=== PATIENT | female | born 1960 | race Caucasian/White ===

== ENCOUNTER → 2017-02-28 | Outpatient (CLI) | payer OTHER ==
[~2017-02-28] MED LIST: ALEVE220 MG PO; FLEXERIL5 MG PO; PERCOCET 325 MG1 TAB PO; TORADOL10 MG PO
== END | disposition home or self-care (01) ==
LOC: MRI 09:30
DX: M16.12 Unilateral primary osteoarthritis, left hip (principal); M16.11 Unilateral primary osteoarthritis, right hip; M25.562 Pain in left knee; M25.462 Effusion, left knee; M71.22 Synovial cyst of popliteal space [Baker], left knee; M25.561 Pain in right knee; M22.8X2 Other disorders of patella, left knee; M22.8X1 Other disorders of patella, right knee

== ENCOUNTER → 2017-03-05 | Outpatient (CLI) | payer OTHER | END | disposition home or self-care (01) | LOC: MRI 09:57 | DX: M17.0 Bilateral primary osteoarthritis of knee (principal); R23.3 Spontaneous ecchymoses; M25.551 Pain in right hip; M25.552 Pain in left hip ==

== ENCOUNTER → 2017-05-21 | Outpatient (CLI) | payer OTHER ==
[2017-05-21 09:18] LABS: FREE T4 1.02 ng/dl (0.76-1.46)
[2017-05-21 09:23] LABS: THYROID STIM HORMONE (HS) 0.735 uIU/ml (0.358-4.75)
== END | disposition home or self-care (01) ==
LOC: LAB 08:31
PROVIDERS: Internal Medicine
DX: E04.2 Nontoxic multinodular goiter (principal)

== ENCOUNTER → 2017-06-05 | Outpatient (CLI) | payer OTHER | END | disposition home or self-care (01) | LOC: RAD 12:54 | DX: M47.817 Spondylosis without myelopathy or radiculopathy, lumbosacral region (principal); M41.86 Other forms of scoliosis, lumbar region ==

== ENCOUNTER 2017-10-08 15:18 | Inpatient (IN) | payer OTHER ==
[~2017-10-08] VITALS: Ht 167.6 cm; Wt 81.7 kg
--- NOTE | ~2017-10-08 | CON ---
[place], [place] REPORT OF CONSULTATION NAME: JAVIER RAY UNIT #: [id number] ROOM: 504 DOCTOR: ANTHONY JOHNSON MD BIRTHDATE: [birth year] DOS: 10/09/2017 ATTESTATION The patient was seen and examined by myself. Labs and EKG notes were reviewed. The patient coming in with relatively atypical complaint of chest pain that has been going for the past year. There is a possibility of new onset hypertension that is responding to current medical regimen. A stress test with following Lexiscan was negative for ischemia. We are awaiting the nuclear images. The patient's lipid profile is quite favorable. Smoking cessation was reemphasized. The patient was asked not to shovel snow this year. Pending the results of the stress test, we will attempt medical management. Cardiac catheterization will be considered for any recurrence of chest pain while on Lopressor and Imdur. Early followup within 4 to 6 weeks as an outpatient. ANTHONY JOHNSON MD CM:CONSTR:REPORT OF CONSULTATION 1145 10/09/17 1703 interface
--- NOTE | ~2017-10-08 | ST ---
[place], [place] EXERCISE STRESS TEST REPORT NAME: JAVIER RAY [facility] #: [id number] UNIT #: [id number] ROOM: [facility] DOCTOR: ANTHONY JOHNSON MD BIRTHDATE: [birth year] DOS: REQUESTING PHYSICIAN: Dr. Garcia. INDICATION: Chest pain. PROCEDURE: The patient was brought into the stress lab. Procedure was explained with risks, benefits and alternatives. Lexiscan was injected. The patient tolerated the procedure relatively well. BLOOD PRESSURE RESPONSE: Resting blood pressure 128/88 with ending blood pressure 144/88. ELECTROCARDIOGRAM INTERPRETATION: Electrocardiogram showing normal sinus rhythm with left bundle-branch block with evidence of primary nonspecific ST-T changes. Following the infusion, there were no new changes. FINAL IMPRESSION: 1. Adequate Lexiscan stress test. 2. Inconclusive Lexiscan stress test for stress induced myocardial ischemia due to baseline EKG changes. 3. No arrhythmias were noted. 4. Myoview results will be reported separately. ANTHONY JOHNSON MD CM:STRESS:EXERCISE STRESS TEST REPORT 1142 [id number] ANTHONY JOHNSON MD
--- NOTE | ~2017-10-08 | CON ---
[place], [place] REPORT OF CONSULTATION NAME: JAVIER RAY UNIT #: [id number] ROOM: 504 DOCTOR: ANTHONY JOHNSON MD BIRTHDATE: [birth year] DOS: ATTESTATION REQUESTING PHYSICIAN: Dr. Hurtado. The patient was seen and examined by myself. Notes and labs were reviewed. The above management plan was carried out in my presence and with my direct participation. ANTHONY JOHNSON MD CM:CONSTR:REPORT OF CONSULTATION 0959 10/17/17 1038 interface
[2017-10-08 15:22] VITALS: BP 155/92
[2017-10-08 15:52] LABS: BASO % 0.5 % (0.0-1.0); EOS # 0.1 10*3/uL (0.0-0.4); EOS % 1.6 % (1.0-4.0); HEMATOCRIT 38.5 % (37.0-47.0); HEMOGLOBIN 12.7 g/dl (12.0-16.0); LYMPH % 24.1 % (27.0-41.0); MEAN CELL VOLUME 90.8 fl (81.0-99.0); MEAN PLATELET VOLUME 10.4 fl (9.6-12.3); MONO # 0.5 10*3/uL (0.1-1.0); MONO % 6.2 % (3.0-9.0); NEUT # 5.5 10*3/uL (2.3-7.9); NEUT % 67.5 % (47.0-73.0); PLATELET COUNT AUTOMATED 244 10*3/uL (130-400); RED BLOOD COUNT 4.24 10*6/uL (4.10-5.10); RED CELL DISTRI WIDTH 12.9 % (0-14.5); WHITE BLOOD COUNT 8.2 10*3/uL (4.8-10.8)
[2017-10-08 16:01] LABS: ACT PARTIAL THROMBO TIME 23.8 SECONDS (20.8-31.5)
[2017-10-08 16:09] LABS: ALBUMIN 3.8 gm/dl (3.1-4.5); ALKALINE PHOSPHATASE 131 U/L (45-117); BUN 15 mg/dl (7-24); CHLORIDE 106 mmol/L (98-107); CREATININE 0.91 mg/dL (0.55-1.02); POTASSIUM 4.3 mmol/L (3.5-5.1); SGOT/AST 23 IU/L (3-35); SGPT/ALT 13 U/L (12-78); SODIUM 141 mmol/L (136-145); TOTAL PROTEIN 7.4 gm/dL (6.4-8.2)
[2017-10-08 16:11] LABS: TROPONIN I < 0.015 ng/ml (<0.045)
[2017-10-08 16:36] VITALS: BP 122/84
--- NOTE | 2017-10-08 16:37 | NUR ---
SPOKE WITH DR WEAVER ABOUT MED ORDER OF IMDUR AND METOPROLOL. ADVISED MD OF VITAL SIGNS. HE ADVISED ME TO GIVE PATIENT METOPROLOL BUT NOT IMDUR.
[2017-10-08 17:15] VITALS: BP 145/87
--- NOTE | 2017-10-08 17:30 | NUR ---
A 56, admitted to , under the services of CLEO Wilhelm DO with a diagnosis of CHEST PAIN,L BUNDLE BRANCH BLOCK. Chief complaint is CHEST PAIN. Patient arrived via bed from ER. Monitor applied. Initial assessment completed. Vital signs taken and recorded. CLEO WILHELM DO notified of admission to the unit. Orders received. See assessment for past medical history, medications and allergies. Patient and/or family oriented to unit. [facility] visitation policy reviewed. Clothing/patient valuable form completed. MARY FLANNERY R
[2017-10-08] MEDS ORDERED: SUBOXONE 8 MG-1 EACH PO (17:48)
[2017-10-08] MEDS ORDERED: SUBOXONE 8 MG-1 EACH SL (18:14)
--- NOTE | 2017-10-08 18:15 | NUR ---
MEDICATON VERIFIED BY [facility].
--- NOTE | 2017-10-08 18:16 | NUR ---
CALLED DR. V[facility] STATES SHE WAS GIVEN SUBOXONE 8/2MG BID. [facility] PT STATES ONLY TAKES 1/4 OF ONE ONCE A DAY.
--- NOTE | 2017-10-08 18:21 | NUR ---
CALLED LEFT MESSAGE WITH DR. JOHNSON ANSWERING SERVICE REGARDING CONSULT. THEY WILL RELAY THE MESSAGE.
--- NOTE | 2017-10-08 18:24 | NUR ---
DR. SARMIENTO CALLED ORDERS TAKEN AND REVIEWED.
[2017-10-08 19:41] LABS: URINE AMPHETAMINES < 1000 (1000ng/ml); URINE BARBITURATES < 200 (200ng/ml); URINE BENZODIAZEPINES < 200 (200ng/ml); URINE CANNABINOIDS (THC) < 50 (50ng/ml); URINE COCAINE < 300 (300ng/ml); URINE METHADONE < 300 (300ng/ml); URINE OPIATES < 300 (300ng/ml)
[2017-10-08 19:42] LABS: URINE PHENCYCLIDINE < 25 (25ng/ml)
[2017-10-08 20:00] VITALS: BP 121/72
--- NOTE | 2017-10-08 20:17 | NUR ---
PT. RESTING IN BED WATCHING TV AT THIS TIME. RESPERS ARE EASY AND REGULAR WITH NO DISTRESS NOTED AT THIS TIME. PT. DOES NOT VERBALIZE ANY COMPLAINTS, BUT DOES REQUEST SOMETING TO HELP HER SLEEP, SEE EMAR. HOB IS ELEVATED, CALL LIGHT WITHIN REACH, BED IS LOW AND WHEELS ARE LOCKED. SEE SHIFT ASSESSMENT.
--- NOTE | 2017-10-08 20:24 | NUR ---
SPOKE WITH DR. Maryam DONOVAN IN REGARDS TO PT. REQUEST FOR SOMETHING TO HELP HER SLEEP. SEE NEW ORDERS.
--- NOTE | 2017-10-08 21:41 | NUR ---
PRN RESTORIL GIVEN PER PT. REQUEST FOR C/O INSOMNIA, CALL LIGHT IS WITHIN REACH. WILL MONITOR EFFECT.
--- NOTE | 2017-10-08 23:23 | NUR ---
PRN RESTORIL SEEMS EFFECTIVE, PT. IS SLEEPING COMFORTABLY WITH CALL LIGHT STILL IN REACH.
--- NOTE | 2017-10-08 23:49 | NUR ---
24 HR chart check completed.
[2017-10-09] VITALS: BP 108/65
[2017-10-09 06:32] LABS: BASO # 0.1 10*3/uL (0.0-0.1); BASO % 0.6 % (0.0-1.0); EOS # 0.3 10*3/uL (0.0-0.4); EOS % 3.3 % (1.0-4.0); HEMATOCRIT 42.4 % (37.0-47.0); HEMOGLOBIN 13.7 g/dl (12.0-16.0); LYMPH # 2.2 10*3/uL (1.3-4.4); LYMPH % 25.6 % (27.0-41.0); MEAN CORPUSCULAR HGB 29.4 pg (27.0-31.0); MEAN CORPUSCULAR HGB CONC 32.3 g/dl (33.0-37.0); MEAN PLATELET VOLUME 10.9 fl (9.6-12.3); MONO # 0.6 10*3/uL (0.1-1.0); MONO % 6.6 % (3.0-9.0); NEUT # 5.4 10*3/uL (2.3-7.9); NEUT % 63.7 % (47.0-73.0); PLATELET COUNT AUTOMATED 262 10*3/uL (130-400); RED BLOOD COUNT 4.66 10*6/uL (4.10-5.10); RED CELL DISTRI WIDTH 13.2 % (0-14.5); WHITE BLOOD COUNT 8.4 10*3/uL (4.8-10.8)
[2017-10-09 06:38] LABS: ALBUMIN 3.5 gm/dl (3.1-4.5); ALKALINE PHOSPHATASE 106 U/L (45-117); BUN 15 mg/dl (7-24); CHLORIDE 109 mmol/L (98-107); CHOLESTEROL 137 mg/dL (<200); CREATININE 0.69 mg/dL (0.55-1.02); HDL CHOLESTEROL 41 mg/dl (40-60); LDL CHOLESTEROL 84 mg/dL (9-159); PHOSPHOROUS 3.3 mg/dL (2.5-4.9); POTASSIUM 4.1 mmol/L (3.5-5.1); SGOT/AST 17 IU/L (3-35); SGPT/ALT 12 U/L (12-78); SODIUM 141 mmol/L (136-145); TOTAL PROTEIN 6.9 gm/dL (6.4-8.2); TRIGLYCERIDES 60 mg/dl (<150); VLDL CHOLESTEROL 12 mg/dL (6-40)
[2017-10-09 06:43] LABS: THYROID STIM HORMONE (HS) 0.744 uIU/ml (0.358-4.75)
[2017-10-09 08:00] VITALS: BP 132/82
--- NOTE | 2017-10-09 08:30 | NUR ---
Deputy Director Of Public Works in to talk to patient. Patient states lives at HOME ALONE with . There are 20 steps in the home. Physician: DR MERCHANT Pharmacy: [facility] Home health services: NONE Patient's level of ADLs: INDEPENDENT Patient has working utilities: YES DME: NONE Follow-up physician's appointment after d/c: WILL BE DONE PRIOR TO DC Does patient want to access PORTAL?: Discharge plan HOME. UMBERTO HEMPHILL
--- NOTE | 2017-10-09 11:00 | NUR ---
INFORMED CONSENT OBTAINED FOR LEXISCAN NUCLEAR STRESS TEST WITH DR. JOHNSON. RESTING EKG LBBB WITH A RESTING HR OF 64 AND BP OF 128/80. LUNGS CLEAR WITH SPO2 OF 97% ON ROOM AIR. PT COMPLETED A 1:00 LEXISCAN PROTOCOL RECEIVING LEXISCAN 0.4 MG IV OVER 10 SECONDS. HAD NO CHEST PAIN BUT DEVELOP DIZZINESS, SHORTNESS OF BREATH, NAUSEA AND HEADACHE THAT WAS RELIEVED IN RECOVERY. EKG NONDIAGNOSTIC WITH LBBB. HAD A PEAK HR OF 93 WITH BP OF 142/88. LAST RECOVERY HR OF 86 WITH BP OF 144/88. AWAITING SCANNING IN STABLE CONDITION.
[2017-10-09] MEDS ORDERED: LOPRESSOR25 MG PO (15:40)
[2017-10-09] MEDS ORDERED: ASPIRIN ADULT L81 MG PO (15:40)
[2017-10-09] MEDS ORDERED: IMDUR SA60 M1 PO (15:40)
[2017-10-09] MEDS ORDERED: ATORVASTATIN CA80 M1 PO (15:40)
--- NOTE | 2017-10-09 16:03 | NUR ---
Discharge instructions reviewed with patient/family. Patient receptive and verbalizes understanding. Follow-up care arranged. Written instructions given to patient/family.TELEMETRY ACCOUNTED FOR AND HEPLOCK REMOVED. ERIKA MENDEZ
== END 2017-10-09 16:03 | disposition home or self-care (01) | DRG 392 ==
LOC: ED 15:18 → EDHOLD 16:34 → 5E 16:34
PROVIDERS: Hospitalist; Physician Assistant; ADMIT Emergency Medicine
PROC: 4A02XM4 Measurement of Cardiac Total Activity, External Approach (ICD-10-PCS; principal; 2017-10-09)
PROC: 3E073KZ Introduction of Other Diagnostic Substance into Coronary Artery, Percutaneous Approach (ICD-10-PCS; 2017-10-09)
DX: K21.9 Gastro-esophageal reflux disease without esophagitis (principal); F12.10 Cannabis abuse, uncomplicated; R07.89 Other chest pain; F17.210 Nicotine dependence, cigarettes, uncomplicated; G89.29 Other chronic pain; I44.7 Left bundle-branch block, unspecified; R42 Dizziness and giddiness; M54.9 Dorsalgia, unspecified; Z88.1 Allergy status to other antibiotic agents; Z79.82 Long term (current) use of aspirin; Z71.6 Tobacco abuse counseling; Z79.899 Other long term (current) drug therapy; Z82.0 Family history of epilepsy and other diseases of the nervous system

== ENCOUNTER → 2018-03-26 | Outpatient (CLI) | payer OTHER ==
[~2018-03-26] MED LIST changes: +ASPIRIN ADULT L81 MG PO; +ATORVASTATIN CA80 M1 PO; +IMDUR SA60 M1 PO; +LOPRESSOR25 MG PO; +SUBOXONE 8 MG-1 EACH PO; +SUBOXONE 8 MG-1 EACH SL
[2018-03-26 18:21] LABS: URINE AMPHETAMINES < 1000 (1000ng/ml); URINE BARBITURATES < 200 (200ng/ml); URINE BENZODIAZEPINES < 200 (200ng/ml); URINE CANNABINOIDS (THC) > 50 (50ng/ml); URINE COCAINE < 300 (300ng/ml); URINE METHADONE < 300 (300ng/ml); URINE OPIATES < 300 (300ng/ml); URINE PHENCYCLIDINE < 25 (25ng/ml)
== END | disposition home or self-care (01) ==
LOC: LAB 17:51
PROVIDERS: Internal Medicine
DX: F11.20 Opioid dependence, uncomplicated (principal)

== ENCOUNTER 2018-08-23 18:54 | Emergency (ER) | payer OTHER ==
[~2018-08-23] VITALS: Ht 167.6 cm; Wt 81.6 kg
[2018-08-23 18:55] VITALS: BP 119/62
== END 2018-08-23 23:36 | disposition home or self-care (01) ==
LOC: ED 18:54
DX: S22.43XA Multiple fractures of ribs, bilateral, initial encounter for closed fracture (principal); Z88.1 Allergy status to other antibiotic agents; W01.0XXA Fall on same level from slipping, tripping and stumbling without subsequent striking against object, initial encounter; Y93.89 Activity, other specified; Y92.89 Other specified places as the place of occurrence of the external cause; Y99.8 Other external cause status

== ENCOUNTER → 2020-09-27 | Outpatient (CLI) | payer OTHER ==
[2020-09-27 09:55] LABS: BASO # 0.1 10*3/uL (0.0-0.1); BASO % 0.6 % (0.0-1.0); EOS # 0.3 10*3/uL (0.0-0.4); EOS % 3.1 % (1.0-4.0); HEMATOCRIT 45.1 % (37.0-47.0); LYMPH # 2.2 10*3/uL (1.3-4.4); LYMPH % 24.7 % (27.0-41.0); MEAN CELL VOLUME 89.5 fl (81.0-99.0); MEAN CORPUSCULAR HGB 28.6 pg (27.0-31.0); MEAN CORPUSCULAR HGB CONC 31.9 g/dl (33.0-37.0); MEAN PLATELET VOLUME 10.2 fl (9.6-12.3); MONO # 0.5 10*3/uL (0.1-1.0); MONO % 5.1 % (3.0-9.0); NEUT # 5.8 10*3/uL (2.3-7.9); NEUT % 66.3 % (47.0-73.0); PLATELET COUNT AUTOMATED 337 10*3/uL (130-400); RED BLOOD COUNT 5.04 10*6/uL (4.10-5.10); RED CELL DISTRI WIDTH 14.3 % (0-14.5); WHITE BLOOD COUNT 8.8 10*3/uL (4.8-10.8)
[2020-09-27 10:36] LABS: ALBUMIN 3.7 gm/dl (3.1-4.5); BUN 11 mg/dl (7-24); CHLORIDE 109 mmol/L (98-107); CHOLESTEROL 163 mg/dL (<200); POTASSIUM 4.3 mmol/L (3.5-5.1); SGOT/AST 18 IU/L (3-35); SGPT/ALT 12 U/L (12-78); SODIUM 140 mmol/L (136-145); TRIGLYCERIDES 85 mg/dl (<150); VLDL CHOLESTEROL 17 mg/dL (6-40)
[2020-09-27 10:45] LABS: ALKALINE PHOSPHATASE 121 U/L (45-117); HDL CHOLESTEROL 48 mg/dl (40-60); LDL CHOLESTEROL 98 mg/dL (9-159); THYROID STIM HORMONE (HS) 0.625 uIU/ml (0.358-4.75)
== END | disposition home or self-care (01) ==
LOC: LAB 09-26 11:48
PROVIDERS: ATTEND Registered Nurse Psychiatric/Mental Health
DX: F32.9 Major depressive disorder, single episode, unspecified (principal)

== ENCOUNTER → 2021-03-20 | Outpatient (CLI) | payer MEDICARE ==
[2021-03-20 12:47] LABS: BASO % 0.4 % (0.0-1.0); EOS # 0.2 10*3/uL (0.0-0.4); EOS % 1.9 % (1.0-4.0); HEMATOCRIT 44.4 % (37.0-47.0); LYMPH # 2.1 10*3/uL (1.3-4.4); MEAN CELL VOLUME 89.9 fl (81.0-99.0); MEAN CORPUSCULAR HGB 28.7 pg (27.0-31.0); MEAN PLATELET VOLUME 10.1 fl (9.6-12.3); MONO # 0.6 10*3/uL (0.1-1.0); MONO % 5.1 % (3.0-9.0); NEUT # 8.3 10*3/uL (2.3-7.9); NEUT % 73.4 % (47.0-73.0); PLATELET COUNT AUTOMATED 346 10*3/uL (130-400); RED BLOOD COUNT 4.94 10*6/uL (4.10-5.10); RED CELL DISTRI WIDTH 14.6 % (0-14.5); RETICULOCYTE % 1.24 % (0.50-2.50); WHITE BLOOD COUNT 11.3 10*3/uL (4.8-10.8)
[2021-03-20 12:51] LABS: BILIRUBIN Negative (Negative); BLOOD Negative (Negative); CLARITY Clear (Clear); COLOR Yellow (Yellow); GLUCOSE Negative (Negative); KETONE Negative (Negative); LEUKO ESTERASE Negative (Negative); NITRITE Negative (Negative); UROBILINOGEN 0.2 E.U./dl (0.0-1.0)
[2021-03-20 13:09] LABS: ALKALINE PHOSPHATASE 127 U/L (45-117); BUN 13 mg/dl (7-24); CHLORIDE 109 mmol/L (98-107); CHOLESTEROL 164 mg/dL (<200); CREATININE 0.94 mg/dL (0.55-1.02); GAMMA GLUTAMYL TRANSPEPTIDASE 24 U/L (5-55); IRON 42 ug/dL (50-170); POTASSIUM 4.1 mmol/L (3.5-5.1); SGOT/AST 16 IU/L (3-35); SGPT/ALT 15 U/L (12-78); SODIUM 139 mmol/L (136-145); TOTAL IRON BINDING CAPACITY 292 ug/dl (250-450); TOTAL PROTEIN 8.1 gm/dL (6.4-8.2); TRIGLYCERIDES 74 mg/dl (<150); URIC ACID 4.5 mg/dL (2.6-6.0)
[2021-03-20 13:17] LABS: LDL CHOLESTEROL 111 mg/dL (9-159); THYROID STIM HORMONE (HS) 0.673 uIU/ml (0.358-4.75)
[2021-03-20 13:19] LABS: BACTERIA 2+; MUCOUS 1+
[2021-03-20 13:27] LABS: FERRITIN 58.5 ng/mL (10.0-291.0); VITAMIN D, 25-HYDROXY 36.2 ng/mL (30-100)
[2021-03-21 12:07] LABS: RHEUMATOID ARTHRITIS FACTOR <10.0 IU/mL (0.0-13.9)
[2021-03-21 13:06] LABS: ANTI-DSDNA ANTIBODIES 18 IU/mL (0-9)
== END | disposition home or self-care (01) ==
LOC: LAB 12:24
PROVIDERS: ATTEND Family Medicine
DX: J98.11 Atelectasis (principal); R79.89 Other specified abnormal findings of blood chemistry; R53.83 Other fatigue; E55.9 Vitamin D deficiency, unspecified; E78.5 Hyperlipidemia, unspecified; R74.8 Abnormal levels of other serum enzymes

== ENCOUNTER → 2021-03-26 | Outpatient (CLI) | payer MEDICARE, MEDICAID | END | disposition home or self-care (01) | LOC: MAMMO 10:30 | PROVIDERS: ATTEND Family Medicine | DX: Z12.31 Encounter for screening mammogram for malignant neoplasm of breast (principal); N64.89 Other specified disorders of breast ==

== ENCOUNTER → 2022-03-12 | Outpatient (CLI) | payer MEDICARE, MEDICAID ==
[2022-03-12 11:27] LABS: BASO # 0.1 10*3/uL (0.0-0.1); BASO % 0.6 % (0.0-1.0); EOS # 0.3 10*3/uL (0.0-0.4); EOS % 3.1 % (1.0-4.0); HEMATOCRIT 45.5 % (37.0-47.0); LYMPH # 1.7 10*3/uL (1.3-4.4); LYMPH % 19.4 % (27.0-41.0); MEAN CELL VOLUME 88.2 fl (81.0-99.0); MEAN CORPUSCULAR HGB 29.3 pg (27.0-31.0); MEAN CORPUSCULAR HGB CONC 33.2 g/dl (33.0-37.0); MEAN PLATELET VOLUME 9.7 fl (9.6-12.3); MONO # 0.5 10*3/uL (0.1-1.0); MONO % 5.9 % (3.0-9.0); NEUT # 6.2 10*3/uL (2.3-7.9); NEUT % 70.8 % (47.0-73.0); PLATELET COUNT AUTOMATED 346 10*3/uL (130-400); RED BLOOD COUNT 5.16 10*6/uL (4.10-5.10); RETICULOCYTE % 1.04 % (0.50-2.50); WHITE BLOOD COUNT 8.7 10*3/uL (4.8-10.8)
[2022-03-12 11:36] LABS: BILIRUBIN Negative (Negative); BLOOD Negative (Negative); CLARITY Clear (Clear); COLOR Yellow (Yellow); GLUCOSE Negative (Negative); KETONE Negative (Negative); LEUKO ESTERASE Negative (Negative); NITRITE Negative (Negative); UROBILINOGEN 0.2 E.U./dl (0.0-1.0)
[2022-03-12 11:53] LABS: RBC 0-2 rbc/hpf (0-2)
[2022-03-12 12:21] LABS: ALKALINE PHOSPHATASE 127 U/L (45-117); BUN 13 mg/dl (7-24); CHLORIDE 107 mmol/L (98-107); CHOLESTEROL 172 mg/dL (<200); CREATININE 0.93 mg/dL (0.55-1.02); GAMMA GLUTAMYL TRANSPEPTIDASE 46 U/L (5-55); IRON 92 ug/dL (50-170); LDL CHOLESTEROL 108 mg/dL (9-159); SGOT/AST 25 IU/L (3-35); SGPT/ALT 20 U/L (12-78); SODIUM 140 mmol/L (136-145); TOTAL IRON BINDING CAPACITY 271 ug/dl (250-450); TOTAL PROTEIN 8.1 gm/dL (6.4-8.2); TRIGLYCERIDES 95 mg/dl (<150)
[2022-03-12 12:27] LABS: FERRITIN 80.2 ng/mL (10.0-291.0); VITAMIN D, 25-HYDROXY 17.9 ng/mL (30-100)
[2022-03-13 06:07] LABS: RHEUMATOID FACTOR <10.0 IU/mL (<14.0)
[2022-03-13 10:08] LABS: ANTI-DSDNA ANTIBODIES 16 IU/mL (0-9)
== END | disposition home or self-care (01) ==
LOC: LAB 10:57
PROVIDERS: ATTEND Family Medicine
DX: M47.816 Spondylosis without myelopathy or radiculopathy, lumbar region (principal); M48.061 Spinal stenosis, lumbar region without neurogenic claudication; M25.78 Osteophyte, vertebrae; M51.34 Other intervertebral disc degeneration, thoracic region; E78.5 Hyperlipidemia, unspecified; R79.89 Other specified abnormal findings of blood chemistry; R53.83 Other fatigue; R74.8 Abnormal levels of other serum enzymes; M51.36 Other intervertebral disc degeneration, lumbar region; M85.88 Other specified disorders of bone density and structure, other site; M48.04 Spinal stenosis, thoracic region

== ENCOUNTER → 2022-03-13 | Outpatient (CLI) | payer MEDICARE, MEDICAID | END | disposition home or self-care (01) | LOC: LAB 10:52 | PROVIDERS: ATTEND Family Medicine | DX: E78.5 Hyperlipidemia, unspecified (principal); E55.9 Vitamin D deficiency, unspecified; R79.89 Other specified abnormal findings of blood chemistry; R53.83 Other fatigue ==

== ENCOUNTER → 2022-04-16 | Outpatient (CLI) | payer MEDICARE, MEDICAID | END | disposition home or self-care (01) | LOC: MAMMO 12:55 | PROVIDERS: ATTEND Nurse Practitioner Women's Health | DX: N64.4 Mastodynia (principal); N64.59 Other signs and symptoms in breast ==

== ENCOUNTER → 2022-04-25 | Outpatient (CLI) | payer MEDICARE, MEDICAID | END | disposition home or self-care (01) | LOC: RAD 08:44 | PROVIDERS: ATTEND Nurse Practitioner Women's Health | DX: M81.0 Age-related osteoporosis without current pathological fracture (principal) ==

== ENCOUNTER → 2022-08-27 | Outpatient (CLI) | payer MEDICARE, MEDICAID ==
[2022-08-27 10:47] LABS: BUN 12 mg/dl (7-24); CHLORIDE 109 mmol/L (98-107); CHOLESTEROL 153 mg/dL (<200); CREATININE 0.89 mg/dL (0.55-1.02); POTASSIUM 4.2 mmol/L (3.5-5.1); SGOT/AST 20 IU/L (3-35); SGPT/ALT 15 U/L (12-78); SODIUM 142 mmol/L (136-145); TOTAL PROTEIN 7.7 gm/dL (6.4-8.2); TRIGLYCERIDES 94 mg/dl (<150)
[2022-08-27 10:54] LABS: ALKALINE PHOSPHATASE 126 U/L (45-117); FREE T4 1.21 ng/dl (0.76-1.46); LDL CHOLESTEROL 99 mg/dL (9-159); THYROID STIM HORMONE (HS) 0.624 uIU/ml (0.358-4.75)
== END ==
LOC: LAB 09:15
PROVIDERS: ATTEND Internal Medicine
DX: E04.2 Nontoxic multinodular goiter (principal); E55.9 Vitamin D deficiency, unspecified; E66.9 Obesity, unspecified

== ENCOUNTER → 2023-10-22 | Outpatient (CLI) | payer MEDICARE ==
[2023-10-22 09:29] LABS: BUN 14 mg/dl (9-23); CHLORIDE 107 mmol/L (98-107); POTASSIUM 4.7 mmol/L (3.4-5.1)
== END | disposition home or self-care (01) ==
LOC: LAB 08:25
PROVIDERS: ATTEND Internal Medicine
DX: E34.9 Endocrine disorder, unspecified (principal); E04.2 Nontoxic multinodular goiter; E55.9 Vitamin D deficiency, unspecified; E27.0 Other adrenocortical overactivity; Z79.899 Other long term (current) drug therapy

== ENCOUNTER → 2024-06-10 | Outpatient (CLI) | payer MEDICARE ==
[2024-06-10 10:24] LABS: BASO # 0.1 10*3/uL (0.0-0.1); BASO % 0.5 % (0.0-1.0); EOS # 0.3 10*3/uL (0.0-0.4); HEMATOCRIT 46.5 % (37.0-47.0); LYMPH # 2.2 10*3/uL (1.3-4.4); LYMPH % 23.2 % (27.0-41.0); MEAN CELL VOLUME 89.9 fl (81.0-99.0); MEAN CORPUSCULAR HGB 28.8 pg (27.0-31.0); MEAN PLATELET VOLUME 9.8 fl (9.6-12.3); MONO # 0.6 10*3/uL (0.1-1.0); MONO % 5.8 % (3.0-9.0); NEUT # 6.5 10*3/uL (2.3-7.9); NEUT % 67.3 % (47.0-73.0); PLATELET COUNT AUTOMATED 318 10*3/uL (130-400); RED BLOOD COUNT 5.17 10*6/uL (4.10-5.10); RED CELL DISTRI WIDTH 14.1 % (0-14.5); WHITE BLOOD COUNT 9.7 10*3/uL (4.8-10.8)
[2024-06-10 11:46] LABS: ALKALINE PHOSPHATASE 149 U/L (46-116); BUN 11 mg/dl (9-23); CHLORIDE 106 mmol/L (98-107); POTASSIUM 4.3 mmol/L (3.4-5.1); TOTAL PROTEIN 7.5 gm/dL (6.0-8.0); TRIGLYCERIDES 82 mg/dl (<150)
[2024-06-10 11:47] LABS: SGPT/ALT < 7 U/L (5-49)
[2024-06-11 06:10] LABS: HBSAG Negative (Negative); HEP B CORE AB, IGM Negative (Negative); HEPATITIS C ANTIBODY Non Reactive (Non Reactive)
[2024-06-12 13:07] LABS: TB1 Ag VALUE 0.15 IU/mL (.)
== END | disposition home or self-care (01) ==
LOC: LAB 10:00
PROVIDERS: ATTEND Dermatology
DX: R21 Rash and other nonspecific skin eruption (principal)

== ENCOUNTER → 2025-09-23 | Outpatient (CLI) | payer MEDICARE ==
[~2025-09-23] MED LIST changes: +OXYCODONE-ACET1 EAC3 PO; +PERCOCET 5-3251 EACH PO; +VYVANSE30 MG PO
== END | disposition home or self-care (01) ==
LOC: US 09-05 10:30
PROVIDERS: ATTEND Internal Medicine
DX: K76.0 Fatty (change of) liver, not elsewhere classified (principal); R74.8 Abnormal levels of other serum enzymes

== ENCOUNTER 2025-09-26 12:46 | Emergency (ER) | payer MEDICARE ==
[~2025-09-26] VITALS: Ht 170.1 cm; Wt 104.3 kg
[~2025-09-26 12:46] MED LIST changes: -OXYCODONE-ACET1 EAC3 PO; -PERCOCET 5-3251 EACH PO; -VYVANSE30 MG PO
[2025-09-26 12:56] VITALS: BP 136/76
[2025-09-26] MEDS ORDERED: Acetaminophen/Oxycodone 5 MG/325 MG TABLET PO ONE (13:10)
[2025-09-26] MEDS ORDERED: Bacitracin Zinc 14 GM TUBE T ONE (13:10)
[2025-09-26] MEDS ORDERED: PERCOCET 5-3251 EACH PO (14:37)
[2025-09-28] MEDS ORDERED: VYVANSE30 MG PO (12:28)
[2025-09-29] MEDS ORDERED: OXYCODONE-ACET1 EAC3 PO (13:23)
== END 2025-09-26 14:45 | disposition home or self-care (01) ==
LOC: ED 12:46
DX: S82.52XA Displaced fracture of medial malleolus of left tibia, initial encounter for closed fracture (principal); S82.402A Unspecified fracture of shaft of left fibula, initial encounter for closed fracture; F12.90 Cannabis use, unspecified, uncomplicated; Z98.890 Other specified postprocedural states; Z88.1 Allergy status to other antibiotic agents; W19.XXXA Unspecified fall, initial encounter; Y93.89 Activity, other specified; Y92.89 Other specified places as the place of occurrence of the external cause; Y99.8 Other external cause status

== ENCOUNTER → 2025-09-29 | Day surgery (SDC) | payer MEDICARE ==
[2025-09-29] VITALS (8 sets, daily range): BP systolic 114–137; BP diastolic 63–89
[~2025-09-29] VITALS: Ht 167.6 cm; Wt 106.6 kg
[~2025-09-29] MED LIST changes: +ACETAMINOPHEN 100 ML IV ONE; +Dexamethasone Sodium Phospha 4 MG/ML VIAL IV ONE; +EPINEPHrine/Lidocaine Hydroc 20 ML VIAL ONE; +Lactated Ringer's Solution 1,000 ML IV ONE; +Lidocaine Hydrochloride 5 ML VIAL IV ONE; +MAGNESIUM SULFATE 1 GM/2 ML VIAL IV ONE; +OXYCODONE-ACET1 EAC3 PO; +Ondansetron Hydrochloride 4 MG/2 ML VIAL IV ONE; +PERCOCET 5-3251 EACH PO; +PROPOFOL 200 MG/20 ML VIAL IV ONE; +Ropivacaine Hydrochloride 5 MG/ML 20 ML AMP IJ ONE; +SEVOFLURANE 250 ML BOT INH ONE; +SODIUM CHLORIDE 0.9% 50 ML IV ONE; +VYVANSE30 MG PO; +fentaNYL CITRATE/PF 50 MCG/ML SYRINGE IV PRN; +fentaNYL CITRATE/PF 50 MCG/ML SYRINGE ONE
[2025-09-29 09:13] LABS: BUN 16 mg/dl (9-23)
== END | disposition home or self-care (01) ==
LOC: SDC 09-28 12:30
PROVIDERS: ATTEND Orthopaedic Surgery
DX: S82.842A Displaced bimalleolar fracture of left lower leg, initial encounter for closed fracture (principal); M51.35 Other intervertebral disc degeneration, thoracolumbar region; F12.90 Cannabis use, unspecified, uncomplicated; I44.7 Left bundle-branch block, unspecified; Z79.899 Other long term (current) drug therapy; Z98.890 Other specified postprocedural states; Z87.891 Personal history of nicotine dependence; Z88.8 Allergy status to other drugs, medicaments and biological substances; X58.XXXA Exposure to other specified factors, initial encounter; Y93.89 Activity, other specified; Y92.89 Other specified places as the place of occurrence of the external cause; Y99.8 Other external cause status

== ENCOUNTER → 2025-10-14 | Outpatient (CLI) | payer MEDICARE ==
[~2025-10-14] MED LIST changes: -ACETAMINOPHEN 100 ML IV ONE; -Dexamethasone Sodium Phospha 4 MG/ML VIAL IV ONE; -EPINEPHrine/Lidocaine Hydroc 20 ML VIAL ONE; -Lactated Ringer's Solution 1,000 ML IV ONE; -Lidocaine Hydrochloride 5 ML VIAL IV ONE; -MAGNESIUM SULFATE 1 GM/2 ML VIAL IV ONE; -Ondansetron Hydrochloride 4 MG/2 ML VIAL IV ONE; -PROPOFOL 200 MG/20 ML VIAL IV ONE; -Ropivacaine Hydrochloride 5 MG/ML 20 ML AMP IJ ONE; -SEVOFLURANE 250 ML BOT INH ONE; -SODIUM CHLORIDE 0.9% 50 ML IV ONE; -fentaNYL CITRATE/PF 50 MCG/ML SYRINGE IV PRN; -fentaNYL CITRATE/PF 50 MCG/ML SYRINGE ONE
== END | disposition home or self-care (01) ==
LOC: ORTHO 03:38
PROVIDERS: ATTEND Orthopaedic Surgery
DX: S82.842D Displaced bimalleolar fracture of left lower leg, subsequent encounter for closed fracture with routine healing (principal); M25.472 Effusion, left ankle; M19.072 Primary osteoarthritis, left ankle and foot; M77.32 Calcaneal spur, left foot; M76.62 Achilles tendinitis, left leg; X58.XXXD Exposure to other specified factors, subsequent encounter